=== PATIENT | male | born 1960 | race Caucasian/White ===

== ENCOUNTER 2018-05-22 21:47 | Inpatient (IN) | payer OTHER ==
[~2018-05-22] VITALS: Ht 185.4 cm; Wt 98.5 kg
[2018-05-22 22:54] VITALS: BP 130/71
[2018-05-22 22:55] VITALS: BP 130/71
[2018-05-22] MEDS ORDERED: LASIX 40 MG TAB40 M2 PO (22:56)
[2018-05-22] MEDS ORDERED: NADOLOL 20 MG T20 M1 PO (22:57)
[2018-05-22] MEDS ORDERED: UNICOMPLEX M TA1 TA1 PO (22:57)
[2018-05-22] MEDS ORDERED: MIRALAX17 GM PO (22:58)
[2018-05-22] MEDS ORDERED: POTASSIUM20 PO (22:58)
[2018-05-22] MEDS ORDERED: ALDACTONE100 MG PO (22:59)
[2018-05-22] MEDS ORDERED: VITAMIN B-1100 M1 PO (23:00)
[2018-05-23 01:47] LABS: HEMATOCRIT 39.9 % (42.0-52.0); HEMOGLOBIN 13.3 gm/dL (14.0-18.0); MCH 32.8 pg (26.0-34.0); MCHC 33.2 g/dL (28.0-37.0); MCV 98.7 fL (80.0-100.0); RBC 4.05 mil/uL (4.50-6.00); RDW 13.4 % (10.5-14.5); WBC 15.8 thou/uL (4.0-11.0)
[2018-05-23 01:56] LABS: CALCIUM 8.9 mg/dL (8.5-10.1); CREATININE 1.2 mg/dL (0.7-1.3); POTASSIUM 4.5 mmol/L (3.5-5.1)
[2018-05-23 01:59] LABS: INR 1.3; PROTIME 13.2 Seconds (9.3-11.4)
[2018-05-23 02:01] LABS: ALBUMIN 3.3 g/dL (3.4-5.0); TOTAL BILIRUBIN 2.1 mg/dL (<0.1-1.0); TOTAL PROTEIN 7.3 g/dL (6.4-8.2)
--- NOTE | 2018-05-23 04:27 | NUR ---
PT ARRIVED FROM [facility] FOR DIRECT ADMISSION TO ROOM 358. ARRIVED VIA CART. PT WAS ABLE TO STAND AND TRANSFER SELF FROM CART TO BED W/O DIZZINESS OR WEAKNESS. DENIES ANY NAUSEA OR GI DISTRESS OVERNIGHT. C/O 2-3 "DULL" ABDOMINAL DISCOMFORT. DARK GREEN LIQUID STOOL, MODERATE AMOUNT ONCE OVERNIGHT. SAMPLE SENT TO LAB. CT ABD/PELV COMPLETED. LABS NOTED.
[2018-05-23 04:28] VITALS: BP 105/61
[2018-05-23 07:22] LABS: HEMOGLOBIN 12.4 gm/dL (14.0-18.0)
[2018-05-23 07:43] LABS: DIRECT BILIRUBIN 0.8 mg/dL (<0.1-0.3); TOTAL BILIRUBIN 1.7 mg/dL (<0.1-1.0)
[2018-05-23 07:51] VITALS: BP 110/63
[2018-05-23 11:22] VITALS: BP 114/56
--- NOTE | 2018-05-23 14:07 | NUR ---
ASSESSMENT: CM REVIEWED CHART AND MET WITH PATIENT AND HIS SPOUSE AT THE BEDSIDE. PT WAS A DIRECT ADMIT FROM [place] AFTER HAVING ABDOMINAL PAIN AND SBO. PT HAS HX OF ALCOHOL USE AND HAS ASCITES. PT REPORTS HE LIVES AT HOME WITH HIS . PT REPORTS ONE STEP WITH HANDRAILS INTO THE ROOM. PT REPORTS NO STEPS ONCE INSIDE. PT REPORTS HE IS FAIRLY INDEPENDENT. PT HAS A GRAB BAR IN THE SHOWER. PT STATES HE HAS NOT HAD HH IN THE PAST. PT REPORTS HE IS HOPING TO RETURN HOME AT DISCHARGE. PT AND HAD A QUESTION IF HIS INSURANCE WAS IN NETWORK WITH [facility]. CM ATTEMPTED TO CALL [facility] TO VERIFY AND LEFT VM WITH DW [phone]. CM ALSO ATTEMPTED TO CONTACT LIASON AT [facility] AND LEFT VM TO TRY AND VERIFY. CM ALSO ENCOURAGED TO CALL INSURANCE. DR. ARANDA IS TO SEE PATIENT. CM WILL CONTINUE TO FOLLOW TO ASSIST NEEDED.
[2018-05-23 14:32] LABS: HEMATOCRIT 35.9 % (42.0-52.0); HEMOGLOBIN 12.5 gm/dL (14.0-18.0); MCH 34.5 pg (26.0-34.0); MCHC 34.9 g/dL (28.0-37.0); MCV 98.8 fL (80.0-100.0); RBC 3.63 mil/uL (4.50-6.00); RDW 13.2 % (10.5-14.5); WBC 10.9 thou/uL (4.0-11.0)
[2018-05-23 16:36] VITALS: BP 112/57
--- NOTE | 2018-05-23 17:35 | NUR ---
ASSUMED PATIENT CARE AT 0700. A/O X4. DENIES N/V. NO PAIN. HAD PARACENTESIS TODAY TOLERATED WELL. STARTED CLEAR LIQUID DEIT. PROGRESSING TOWRADS POC GOALS.
[2018-05-23 19:30] VITALS: BP 104/52
[2018-05-24 03:45] VITALS: BP 111/47
--- NOTE | 2018-05-24 04:01 | NUR ---
PT MAKING PROGRESS TOWARDS GOALS. RATING ABDOMINAL PAIN 2/10 THROUGHOUT THE NIGHT. HAS DENIED THE NEED FOR ANY PAIN MEDICATION. ALSO HAS DENIED ANY NAUSEA OR GI DISTRESS. TAKING CLEAR LIQUIDS WITHOUT DIFFICULTY.
[2018-05-24 05:44] LABS: HEMATOCRIT 34.8 % (42.0-52.0); MCH 34.1 pg (26.0-34.0); MCHC 34.4 g/dL (28.0-37.0); MCV 99.3 fL (80.0-100.0); RBC 3.51 mil/uL (4.50-6.00); RDW 13.4 % (10.5-14.5); WBC 9.7 thou/uL (4.0-11.0)
[2018-05-24 06:02] LABS: ALBUMIN 2.9 g/dL (3.4-5.0); CALCIUM 8.7 mg/dL (8.5-10.1); CREATININE 1.1 mg/dL (0.7-1.3); MAGNESIUM 1.9 mg/dL (1.8-2.4); POTASSIUM 4.1 mmol/L (3.5-5.1); TOTAL BILIRUBIN 1.4 mg/dL (<0.1-1.0); TOTAL PROTEIN 6.5 g/dL (6.4-8.2)
[2018-05-24 06:16] LABS: AMYLASE 44 U/L (25-115); LIPASE 463 U/L (73-393)
[2018-05-24 07:45] VITALS: BP 106/53
[2018-05-24 11:30] VITALS: BP 104/52
[2018-05-24 16:45] VITALS: BP 106/51
--- NOTE | 2018-05-24 18:23 | NUR ---
PT HAS DENIES PAIN THIS SHIFT..ENCOURAGED AMBULATION IN ROOM..TOLERATED CLEAR LIQ DIET WELL..
[2018-05-24 18:58] VITALS: BP 131/74
[2018-05-25 03:41] VITALS: BP 104/55
--- NOTE | 2018-05-25 06:05 | NUR ---
Pt. slept fair during the night. Denies any pain. No nausea or vomiting. Reported small loose bm this am. Cont. on isolation for c diff. Abdominal dressing clean,dry and intact. SCD's in place. Making progress towards care plan goals.
[2018-05-25 07:33] VITALS: BP 105/57
[2018-05-25 11:15] VITALS: BP 104/62
[2018-05-25 15:03] VITALS: BP 109/62
--- NOTE | 2018-05-25 18:40 | NUR ---
PT DENIES NAUSEA AND VOMITTING..TOLERATED REG DIET FOR LUNCH AND DINNER..
[2018-05-25 20:00] VITALS: BP 105/62
[2018-05-26] VITALS (7 sets, daily range): BP systolic 97–116; BP diastolic 53–54
--- NOTE | 2018-05-26 04:31 | NUR ---
PT MAKING PROGRESS TOWARDS GOALS. TOLERATING FOOD AND FLUIDS W/O COMPLAINT. RATING ABDOMINAL PAIN AT 2/10 IN REGARDS TO THE ABDOMINAL INCISION. HAS DENIED NEED FOR ANY PAIN MEDICATIONS.
[2018-05-26 05:39] LABS: HEMATOCRIT 35.1 % (42.0-52.0); HEMOGLOBIN 12.1 gm/dL (14.0-18.0); MCH 33.9 pg (26.0-34.0); MCHC 34.5 g/dL (28.0-37.0); MCV 98.3 fL (80.0-100.0); RBC 3.57 mil/uL (4.50-6.00); RDW 13.4 % (10.5-14.5); WBC 8.7 thou/uL (4.0-11.0)
[2018-05-26 05:56] LABS: ALBUMIN 2.9 g/dL (3.4-5.0); CALCIUM 8.6 mg/dL (8.5-10.1); CREATININE 1.1 mg/dL (0.7-1.3); PHOSPHORUS 3.6 mg/dL (2.5-4.9); POTASSIUM 3.7 mmol/L (3.5-5.1)
[2018-05-26] MEDS ORDERED: FIRVANQ50 MG/1 ML PO (09:29)
[2018-05-26] MEDS ORDERED: TRAMADOL 50 MG50 MG PO (10:14)
--- NOTE | 2018-05-26 15:06 | NUR ---
DISCHARGE NOTE: SW reviewed chart and spoke with nursing and attending physician. Pt is medically stable for discharge home today. No SW needs identified at this time, but is available to assist should needs arise.
--- NOTE | 2018-05-26 16:38 | NUR ---
PT REPORTS 0NE STOOL TODAY AND REPORTS IT IS BECOMING MORE FORMED..ISOLATION FOR CDIFF MAINTAINED..DISCHARGED TO HOME..INSTRUCTIONS GIVEN..
== END 2018-05-26 16:09 | disposition home or self-care (01) | DRG 433 ==
LOC: 3W 21:47
PROVIDERS: Internal Medicine Gastroenterology; Nurse Practitioner; Nurse Practitioner Family; Specialist; ADMIT Hospitalist
PROC: 0W9G3ZZ Drainage of Peritoneal Cavity, Percutaneous Approach (ICD-10-PCS; principal; 2018-05-23)
DX: K70.31 Alcoholic cirrhosis of liver with ascites (principal); A04.72 Enterocolitis due to Clostridium difficile, not specified as recurrent; K92.1 Melena; N17.9 Acute kidney failure, unspecified; K56.600 Partial intestinal obstruction, unspecified as to cause; I85.00 Esophageal varices without bleeding; I25.10 Atherosclerotic heart disease of native coronary artery without angina pectoris; D72.829 Elevated white blood cell count, unspecified; F17.210 Nicotine dependence, cigarettes, uncomplicated; D64.9 Anemia, unspecified; K80.20 Calculus of gallbladder without cholecystitis without obstruction; Z28.21 Immunization not carried out because of patient refusal; Z95.5 Presence of coronary angioplasty implant and graft; I25.2 Old myocardial infarction; Z90.49 Acquired absence of other specified parts of digestive tract; Z79.899 Other long term (current) drug therapy
CPT/HCPCS: 10779; 10879